=== PATIENT | male | born 1955 | race African-American/Black ===

== ENCOUNTER 2019-08-30 01:36 | Emergency (ER) | payer OTHER ==
[~2019-08-30] VITALS: Ht 175.3 cm; Wt 82.0 kg
[2019-08-30] MEDS ORDERED: HALOPERIDOL LACTATE 5MG/ML VIAL IM ONE (02:45)
[2019-08-30] MEDS ORDERED: LORAZEPAM 2MG/ML CPJ IM ONE (02:45)
[2019-08-30] MEDS ORDERED: DIPHENHYDRAMINE 50MG/ML VIAL IM ONE (03:00)
[2019-08-30 03:44] LABS: BASOPHILS % 0.5 % (0.0-2.0); EOSINOPHILS % 0.4 % (0.0-5.0); HEMATOCRIT. 40.5 % (42.0-52.0); HEMOGLOBIN. 13.5 g/dL (14.0-18.0); LYMPHOCYTES % 16.5 % (20.0-50.0); MEAN CORPUSCULAR HEMOGLOBIN 26.5 pg (28.0-32.0); MEAN CORPUSCULAR VOLUME 79.7 fL (80.0-94.0); NEUTROPHILS % 72.6 % (40.0-76.0); PLATELET 367 x1000/uL (130-400); RED BLOOD CELL COUNT 5.09 mill/uL (4.7-6.1); RED CELL DISTRIBUTION WIDTH 15.4 % (11.6-14.6)
[2019-08-30 03:49] LABS: CHLORIDE 108 mEq/L (98-107)
[2019-08-30 03:54] LABS: ETHANOL BLOOD < 10 mg/dL
[2019-08-30 09:34] VITALS: BP 128/68
== END 2019-08-30 09:35 | disposition home or self-care (01) ==
LOC: ER 01:36
DX: F23 Brief psychotic disorder (principal); I49.8 Other specified cardiac arrhythmias
CPT/HCPCS: 36415; 80053; 80307; 80320; 80329; 85025; 93005; 96372; 99285; J1200; J1630; J2060; G0480

== ENCOUNTER 2019-09-07 21:37 | Emergency (ER) | payer MEDICARE, OTHER ==
[~2019-09-07] VITALS: Ht 175.3 cm; Wt 100.0 kg
[2019-09-08 05:33] VITALS: BP 133/96
== END 2019-09-08 07:59 | disposition home or self-care (01) ==
LOC: ER 21:37
DX: R68.89 Other general symptoms and signs (principal); Z59.0 Homelessness; Z98.890 Other specified postprocedural states
CPT/HCPCS: 99283

== ENCOUNTER 2020-03-10 03:59 | Emergency (ER) | payer MEDICARE, OTHER ==
[~2020-03-10] VITALS: Ht 170.2 cm; Wt 113.0 kg
[2020-03-10 04:02] VITALS: BP 123/89
== END 2020-03-10 08:28 | disposition home or self-care (01) ==
LOC: ER 03:59
DX: R07.89 Other chest pain (principal); Z53.21 Procedure and treatment not carried out due to patient leaving prior to being seen by health care provider
CPT/HCPCS: 93005

== ENCOUNTER 2020-03-15 06:21 | Emergency (ER) | payer MEDICARE, OTHER ==
[~2020-03-15] VITALS: Ht 167.6 cm; Wt 82.0 kg
[2020-03-15 06:41] VITALS: BP 158/94
[2020-03-15 08:49] LABS: HEMOGLOBIN. 12.5 g/dL (14.0-18.0); MEAN CORPUSCULAR HEMOGLOBIN 27.4 pg (28.0-32.0); MEAN CORPUSCULAR VOLUME 83.3 fL (80.0-94.0); MEAN PLATELET VOLUME 7.6 fl (7.4-10.4); PLATELET 312 x1000/uL (130-400); RED BLOOD CELL COUNT 4.56 mill/uL (4.7-6.1); RED CELL DISTRIBUTION WIDTH 16.3 % (11.6-14.6)
[2020-03-15 08:56] LABS: CHLORIDE 108 mEq/L (98-107)
[2020-03-15 09:25] LABS: PLATELET ESTIMATE NORMAL
== END 2020-03-15 10:19 | disposition home or self-care (01) ==
LOC: ER 06:21
DX: J18.9 Pneumonia, unspecified organism (principal); R07.89 Other chest pain; R06.00 Dyspnea, unspecified; R05 Cough
CPT/HCPCS: 36415; 71045; 80053; 85025; 87635; 99284

== ENCOUNTER 2023-01-18 12:16 | Emergency (ER) | payer OTHER ==
[~2023-01-18] VITALS: Ht 170.2 cm; Wt 135.0 kg
[2023-01-18 12:19] VITALS: BP 138/86; PULSE 110; RESP 20; O2SAT 99
[2023-01-18] MEDS ORDERED: LORAZEPAM 1MG TABLET PO ONE (12:30)
[2023-01-18] MEDS ORDERED: HALOPERIDOL LACTATE 5MG/ML VIAL IM ONE (12:45)
[2023-01-18] MEDS ORDERED: LORAZEPAM 2MG/ML CPJ IM STA (12:48)
== END 2023-01-18 13:07 | disposition left against medical advice (07) ==
LOC: ER 12:16
DX: R41.82 Altered mental status, unspecified (principal); Z98.890 Other specified postprocedural states
CPT/HCPCS: 99283; J1630; J2060